=== PATIENT | female | born 1950 | race Caucasian/White ===

== ENCOUNTER 2020-05-14 15:15 | Outpatient (CLI) | payer OTHER, SELFPAY ==
[2020-05-14 16:19] LABS: Alanine Aminotransferase 11 U/L (4-35); Albumin Level 4.1 g/dL (3.5-5.1); Alkaline Phosphatase 51 U/L (38-126); Anion Gap 6 mmol/L (8-16); Aspartate Amino Transferase 22 U/L (14-36); Bilirubin,Total 0.4 mg/dL (0.2-1.3); Blood Urea Nitrogen 15 mg/dL (7-17); Calcium 8.9 mg/dL (8.4-10.2); Carbon Dioxide 30 mmol/L (22-30); Chloride 102 mmol/L (98-107); Estimated Glomerular Filt Rate > 60; Glucose 92 mg/dL (65-105); Sodium 138 mmol/L (137-145)
== END 2020-05-14 15:16 | disposition home or self-care (01) ==
LOC: ANHLAB 15:17
PROVIDERS: PCP Family Medicine; Visit Provider Physician Assistant
DX: E78.2 Mixed hyperlipidemia (principal); M81.0 Age-related osteoporosis without current pathological fracture
CPT/HCPCS: 36415; 80053

== ENCOUNTER 2020-11-28 07:12 | Outpatient (CLI) | payer OTHER, SELFPAY ==
[2020-11-28 07:48] LABS: Basophils Absolute Auto 0.1 K/mm3 (0.0-0.1); Basophils Percent Auto 1.5 % (0.2-1.2); Eosinophils Absolute Auto 0.1 K/mm3 (0-0.3); Eosinophils Percent Auto 2.7 % (0-4.4); Hematocrit 39.5 % (37.0-47.0); Hemoglobin 12.8 g/dL (12.0-15.0); Lymphocytes Absolute Auto 0.96 K/mm3 (0.9-3.2); Lymphocytes Percent Auto 29.2 % (18.3-44.2); Mean Corpuscular HGB Conc 32.4 g/dl (32-36); Mean Corpuscular Hemoglobin 30.3 pg (26-34); Mean Corpuscular Volume 93.4 fl (80-100); Mean Platelet Volume 9.6 fl (7.4-10.4); Monocytes Absolute Auto 0.3 K/mm3 (0.1-0.6); Neutrophils Absolute Auto 1.9 K/mm3 (1.3-6.7); Neutrophils Percent Auto 56.6 % (45.5-73.1); Platelet Count Result 239 k/mm3 (150-375); Red Blood Count 4.23 M/mm3 (4.2-5.4); Red Cell Distribution Width 13.8 % (11.5-14.5); White Blood Count 3.3 K/mm3 (4.5-10.0)
[2020-11-28 08:07] LABS: Alanine Aminotransferase 14 U/L (4-35); Albumin Level 4.3 g/dL (3.5-5.1); Alkaline Phosphatase 47 U/L (38-126); Anion Gap 4 mmol/L (8-16); Aspartate Amino Transferase 24 U/L (14-36); Bilirubin,Total 0.9 mg/dL (0.2-1.3); Blood Urea Nitrogen 12 mg/dL (7-17); Calcium 9.2 mg/dL (8.4-10.2); Carbon Dioxide 29 mmol/L (22-30); Chloride 107 mmol/L (98-107); Cholesterol 206 mg/dL (0-200); Estimated Glomerular Filt Rate > 60; Glucose 93 mg/dL (65-105); HDL Direct 96 mg/dL; Potassium 4.3 mmol/L (3.4-5.0); Sodium 140 mmol/L (137-145); Triglycerides 71 mg/dL (<150)
[2020-11-28 08:18] LABS: LDL Cholesterol Direct 86 mg/dL
[2020-12-02 23:20] LABS: Vitamin D 1,25 (OH)2 Total 66 pg/mL (18-72); Vitamin D2 1,25 (OH)2 <8 pg/mL; Vitamin D3 1,25 (OH)2 66 pg/mL
== END 2020-11-28 07:13 | disposition home or self-care (01) ==
PROVIDERS: PCP Family Medicine; Visit Provider Family Medicine
DX: M81.0 Age-related osteoporosis without current pathological fracture (principal); I10 Essential (primary) hypertension; E78.2 Mixed hyperlipidemia
CPT/HCPCS: 36415; 80053; 80061; 82652; 85025

== ENCOUNTER 2021-02-11 10:20 | Outpatient (CLI) | payer OTHER, SELFPAY ==
--- NOTE | 2021-02-11 11:30 | NEURO_ITS ---
Impression: # Complains of right hand pain and numbness. # Evolving right Carpal Tunnel Syndrome with more involvement of sensory component. # No ulnar neuropathy. # Needle/EMG exam not requested. Nerve Conduction Studies Anti Sensory Summary Table Stim Site NR Peak (ms) P-T Amp (?V) Site1 Site2 Delta-P (ms) Dist (cm) Simeon (m/s) Right Median Anti Sensory (2-3nd Digit) Wrist 3.8 20.2 Wrist 2-3nd Digit 3.8 14.0 37 Wrist 4.0 32.4 Wrist 2-3nd Digit 3.8 14.0 37 Right Radial Anti Sensory (Base 1st Digit) Wrist 2.2 24.3 Wrist Base 1st Digit 2.2 0.0 Right Ulnar Anti Sensory (5th Digit) Wrist 2.6 13.2 Wrist 5th Digit 2.6 14.0 54 Motor Summary Table Stim Site NR Onset (ms) O-P Amp (mV) Site1 Site2 Delta-0 (ms) Dist (cm) Simeon (m/s) Right Median Motor (Abd Poll Brev) Wrist 4.0 1.0 Elbow Wrist 4.5 27.0 60 Elbow 8.5 2.1 Right Ulnar Motor (Abd Dig Minimi) Wrist 3.4 4.6 A Elbow Wrist 4.4 27.0 61 A Elbow 7.8 4.5 F Wave Studies NR F-Lat (ms) L-R F-Lat (ms) Right Median (Mrkrs) (Abd Poll Brev) 27.33 Right Ulnar (Mrkrs) (Abd Dig Min) 27.72 MTDD
== END 2021-02-11 10:21 | disposition home or self-care (01) ==
PROVIDERS: PCP Family Medicine; Visit Provider Plastic Surgery
DX: G56.01 Carpal tunnel syndrome, right upper limb (principal); R22.31 Localized swelling, mass and lump, right upper limb; M79.641 Pain in right hand; R20.0 Anesthesia of skin
CPT/HCPCS: 95909

== ENCOUNTER 2021-03-20 10:34 | Outpatient (CLI) | payer OTHER, SELFPAY ==
[2021-03-20 11:17] LABS: Estimated Glomerular Filt Rate 37
== END 2021-03-20 10:35 | disposition home or self-care (01) ==
LOC: ANHIMG 10:38
PROVIDERS: PCP Family Medicine; Visit Provider Plastic Surgery
DX: R22.31 Localized swelling, mass and lump, right upper limb (principal)
CPT/HCPCS: 99199

== ENCOUNTER 2021-03-30 06:51 | Outpatient (CLI) | payer OTHER, SELFPAY ==
[2021-03-30 07:37] LABS: Potassium 4.1 mmol/L (3.4-5.0)
[2021-03-30 07:44] LABS: Anion Gap 5 mmol/L (8-16); Blood Urea Nitrogen 16 mg/dL (7-17); Calcium 9.2 mg/dL (8.4-10.2); Carbon Dioxide 30 mmol/L (22-30); Chloride 105 mmol/L (98-107); Estimated Glomerular Filt Rate > 60; Glucose 98 mg/dL (65-110); Sodium 140 mmol/L (137-145)
== END 2021-03-30 06:52 | disposition home or self-care (01) ==
PROVIDERS: PCP Family Medicine; Visit Provider Physician Assistant
DX: R79.89 Other specified abnormal findings of blood chemistry (principal)
CPT/HCPCS: 36415; 80048

== ENCOUNTER 2021-05-01 09:26 | Outpatient (CLI) | payer OTHER, SELFPAY ==
--- NOTE | ~2021-05-01 | MR_ITS ---
EXAMINATION: MR hand RT wo/w con DATE: 05/01/2021 10:49 INDICATION: Soft tissue mass at the palm of the right hand. TECHNIQUE: Magnetic resonance imaging (MRI) of the without and with 10 mL Multihance was performed wi thout intravenous contrast. A marker was placed over the mass. Sequences included axial, sagittal an d coronal T1-weighted FSE and T2-weighted FS FSE, axial T1-weighted FS FSE and post contrast axial an d coronal T1-weighted FS FSE were also obtained. COMPARISON: None. FINDINGS: Loculated fluid collection in the tendon sheath surrounding the flexor tendons of the third digit whi ch extends 3 cm proximal to distally at the level of the mid to distal metacarpal which measures up t o 1.3 x 1.3 cm in maximal transaxial dimensions. Thin peripheral rim of enhancing synovium. No soft t issue nodules or enhancing nodular soft tissue component within the tendon sheath. There is a very sm all ganglion cyst along the volar aspect of the flexor tendon at the level of the base of the fifth p roximal phalanx. The flexor and extensor tendons are normal. The collateral ligament complex at the m etacarpophalangeal joints. There is thickening of the radial and ulnar collateral ligament complexes consistent with degeneration without discrete tear at the fifth proximal interphalangeal joint. Severe osteoarthritis with subarticular marrow edema and cystlike changes at the first carpometacarpa l joint. Moderate osteoarthritis at the triscaphe joint. Mild osteoarthritis at the second carpometac arpal, midcarpal, first metacarpophalangeal and interphalangeal and fifth metacarpophalangeal joints, each with additional subarticular dislike changes. This includes at the distal pole of the capitate, along the proximal margin of the hamate, at the head of the first metacarpal and proximal phalanx an d base of the fifth proximal phalanx. Incompletely visualized is additional prominent marrow edema an d cystlike changes at the lunate. Moderate osteoarthritis at the fifth proximal interphalangeal joint with central erosion along the ulnar side of the base of the middle phalanx. Additional osteoarthrit is and central erosions are partially visualized at the fifth proximal interphalangeal joint which is at the margin of the [id number]. No fracture or pathologic marrow replacing process. IMPRESSION: 1. Isolated 3 x 1.3 x 1.3 cm tenosynovial fluid collection surrounding the flexor tendons to the thir d digit at the level of the mid to distal metacarpal. No enhancing nodular soft tissue component. 2. 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 Reviewed, dictated and finalized at location A. K DRIVER RUBBISH COLLECTOR IMPRESSION: 1. Isolated 3 x 1.3 x 1.3 cm tenosynovial fluid collection surrounding the flex or tendons to the third digit at the level of the mid to distal metacarpal. No enhancing nodular soft tissue component. 2. 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
[2021-05-01 10:11] LABS: Estimated Glomerular Filt Rate > 60
== END 2021-05-01 09:27 | disposition home or self-care (01) ==
LOC: ANHIMG 09:34
PROVIDERS: PCP Family Medicine
DX: M19.041 Primary osteoarthritis, right hand (principal)
CPT/HCPCS: 73220; A9577

== ENCOUNTER 2021-06-10 01:02 | Day surgery (SDC) | payer OTHER, SELFPAY ==
[2021-06-02 08:31] VITALS: BMI 21.9
--- NOTE | 2021-06-02 08:45 | PC.NURSE ---
Report to the Outpatient Waiting Room, entrance under the green pavilion located off [facility], at time 11:00AM on date 06/10/21 . OR Time: ___1:00PM . - You and your visitor will be asked a series of questions to screen for COVID 19 for your protection. - A mask is required within the hospital. - Only one visitor is allowed at this time. Patient visitors will be guided where to wait when not with patient. Preoperative COVID Testing Requirements: No COVID Test needed if: (proof is required; if not received patient will have Rapid Test prior to entry) - Patient has received COVID Vaccine at least 14 days prior to procedure date or - Patient has positive COVID test result within last 90 days of surgery date. COVID Test needed if above criteria is not met If not COVID vaccinated a COVID test must be conducted within 72 hours of surgery and patient is asked to isolate self from time of testing until procedure. You will go to the [facility] for your COVID testing. The [facility] site is located at the corner of [address] [facility]. You will only be called if COVID results are positive and your surgeon may reschedule your elective surgery date. Patients may have clear liquids (water, carbonated beverages, clear teas, apple juice) until 3 hours prior to surgery with a maximum of 20 ounces. - No food from midnight until time of surgery - Infants may have breast milk until 4 hours before surgery, infant formula 6 hours prior to surgery. - Children will be allowed to drink immediately following surgery. If applicable, please bring a bottle or sippy cup to assist with drinking. Juice, water, soda, and popsicles are readily available. For infants on formula, please bring formula the day of surgery. Pacifiers are allowed. Take the following medications with a SIP of water the morning of surgery: ____NONE Medications to discontinue per physician VITAMINS/SUPPLEMENTS 3 DAYS PRE-OP Date to take last dose____06/07/21 Please no make-up, nail french, hairspray, perfume, deodorant, or body powder the day of surgery. No jewelry (including any body piercings) or valuables the day of surgery, leave them at home. Please take a shower or bath the night before, or the morning of, surgery with an antibacterial soap. Wear comfortable, loose fitting clothing. Children are encouraged to wear pajamas. - Jewelry must be removed prior to entering the operating room. Rings and piercings that are not removed may be cut off. - The hospital will not accept responsibility for valuables. - Please leave all valuables, including medications, at home the day of surgery. If you are going home after surgery, a licensed local company tanker driver must drive you home. - NO public transportation without another adult. - We recommend that an adult stay with you for 24 hours following discharge. - We also recommend that you do not drive, make important decision, drink alcoholic beverages, or take any drugs that were not prescribed by your health care provider for at least 24 hours after your discharge time. For Pediatric surgeries, we recommend two adults accompany the child home (only one inside the building at this time). Follow any additional instructions given to you from your surgeon. Telephone instructions given to _PATIENT and asked if any additional questions and then verbalized understanding. Patient advised to call surgeon office or pre surgery nurse liaison [phone] if any additional questions.
--- NOTE | 2021-06-10 07:16 | WPDHPUPDATE1 ---
History and Physical Update Update Date/Time: 06/10/21 07:16 History and Physical has been reviewed, including an updated exam of the patient. There are NO changes in the patient's condition. Risks, benefits, and alternatives have been discussed and questions answered. Patient agrees to proceed with procedure.
[2021-06-10 11:10] VITALS: BP 148/75; PULSE 77; RESP 14; TEMP 37.1; O2SAT 100; BMI 20.4
[2021-06-10] MEDS: LACTATED RINGERS 1,000 ML 30 ML IV CONT (11:40)
--- NOTE | 2021-06-10 12:03 | WPDANESEPPF ---
Anes - Initial Pre Proc Eval Procedure: Operation Date: 06/10/21 13:00 Proposed Procedures p Release Right Middle Trigger Finger, - Frank Rizo MD s Excision of Tenosynovial Mass of Right Palm - Frank Rizo MD Date/Time: 06/10/21 12:03 Surgeon: Frank Rizo MD Pre Op Diagnosis: rt middle trigger finger,tenosynovial mass rt palm Patient Data Age: 70 Gender: F Height: 1.63 m Weight: 54.05 kg Last Vital Signs Temp 37.1 C 06/10/21 11:10 Pulse 77 06/10/21 11:10 Resp 14 06/10/21 11:10 BP 148/75 H 06/10/21 11:10 Pulse Ox 100 06/10/21 11:10 Allergies Allergy/AdvReac Type Severity Reaction Status Date / Time Sulfa (Sulfonamide Allergy Unknown Swelling Verified 06/10/21 11:34 Antibiotics) diclofenac [From [facility]] Allergy Itching Verified 06/10/21 11:34 misoprostol [From [facility]] Allergy Itching Verified 06/10/21 11:34 Home Medications Medication Instructions Recorded Confirmed Type alendronate 70 mg tablet 70 mg PO WEEKLY #14 tablet 10/30/20 06/02/21 Rx atorvastatin 10 mg tablet 10 mg PO DAILY #90 tablet 10/30/20 06/02/21 Rx cholecalciferol (vitamin D3) 1,250 50,000 unit PO WEEKLY #14 cap 10/30/20 06/10/21 Rx mcg (50,000 unit) capsule pantoprazole 40 mg tablet,delayed 40 mg PO QAM 28 Days #30 tablet 11/23/20 06/02/21 Rx release acetaminophen [Tylenol Arthritis] 1,300 mg PO Q12H PRN 06/02/21 06/02/21 History lisinopril 10 mg PO QAM 06/02/21 06/02/21 History Patient hx anesthesia problems: none Family hx anesthesia problems: none Results Review: All pre-operative results and documents have been reviewed as part of the pre-operative evaluation. [facility] Past Medical History Medical History Aortic atherosclerosis Glaucoma Hearing loss History of tobacco abuse Mixed hyperlipidemia Osteoporosis RBBB Surgical History Surgical History History of total knee arthroplasty Left, 2017 Family History Family History Father Carcinoma of colon, Onset Age: 77 Mother Family history of coronary artery disease, Onset Age: 62 Diabetes mellitus, Onset Age: 63 Sibling No family history of diabetes mellitus Grandparent Diabetes mellitus Social History Social History Social History: Single Smoking packs per day: 0.75 Smoking cigarettes per day: 15.0 Years smoked: 40 Smoking pack-years: 30.00 Smoking status: Current every day smoker Tobacco type: cigarettes and e-cigarettes/vaping Second hand tobacco smoke exposure: No Smoking end date: 05/14/19 Alcohol intake: current Drinks per week: 2 Substance use: never Substance use type: does not use Living arrangements: with family Additional living arrangements comments: SON Gender identity (if verbalized by the patient): Female Sexual Orientation (if Verbalized by the Patient): Straight or Heterosexual Spiritual care concerns: No Anes - Eval Final PreProcedure Day of Procedure 06/10/21 12:03 Patient weight: thin Heart: regular rate and rhythm Lungs: clear to auscultation Airway: Mallampati scale class II Neurological: alert and oriented Last oral intake: >/= 8 hours ASA classification: III Emergent: no Anesthetic plan: proceed Anesthesia type and monitoring: general GIVS and standard monitoring Results Review: All pre-operative results and documents have been reviewed as part of the pre-operative evaluation. Informed Consent: The patient's anesthetic plan and its attendant risks and benefits were discussed with the patient/family/POA. Questions were solicited and answers provided to the satisfaction of the patient/family/POA.
--- NOTE | 2021-06-10 12:09 | WPDHPUPDATE1 ---
History and Physical Update Update Date/Time: 06/10/21 12:09 History and Physical has been reviewed, including an updated exam of the patient. There are NO changes in the patient's condition. Risks, benefits, and alternatives have been discussed and questions answered. Patient agrees to proceed with procedure. Patient reports increasing pain and stiffness of right ringer finger A-1 paco site. She requests injection of cortisone to that site while she is under sedation. I diagnose stenosing tenosynovitis and agree to inject the site. She is aware that this could delay healing of all or part of the incisions.
[2021-06-10] MEDS: BETAMETHASONE SOD PHOS/ACETATE 30 MG/5 ML VIAL 12 MG IM (13:14)
[2021-06-10] MEDS: LIDO 1%/EPINEPHRINE 1:100,000 50 ML VIAL 15 ML INFILTRATE (13:18)
[2021-06-10] MEDS: BACITRACIN OINTMENT 15 GM TUBE 1 APPLIC TOPICAL (13:21)
[2021-06-10 13:35] VITALS: BP 111/56; PULSE 74; RESP 14; O2SAT 96
[2021-06-10 14:03] VITALS: BP 148/67; PULSE 60; RESP 16
--- NOTE | 2021-06-10 14:10 | W.PM.PROC2 ---
Procedure Note - Detailed Date of Procedure 06/10/21 Pre-op Diagnosis rt middle trigger finger,tenosynovial mass rt palm Post-op Diagnosis other (Right middle trigger finger. Tenosynovial mass of the right mid palm. Stenosing tenosynovitis of the right ring A1 paco) Procedure Performed Release of the right middle A1 paco. Excision of 3 cm mid palmar ganglion cyst. Injection Betamethasone 4.8 mg to the right ring A1 paco Surgeon Frank Rizo MD Anesthesia MAC Description of Procedure The 3rd A1 paco site and the fluctuant mass in the palm were marked as the patient waited in the holding area. At that time she requested an injection for the ring finger A1 paco which was causing swelling pain and occasional clicking. I agreed to that and we amended the consent form. She was informed this might result in some delayed healing. That site was marked as well. She was then taken to the operating room where she was placed supine on the operating table, A time-out was held and confirmed. The incision marking was placed and the region was infiltrated with 1% lidocaine with epinephrine including some applied to the carpal canal. The hand was exsanguinated and the tourniquet inflated to 250 mmHg. A Adonay type incision was made in the palm and the skin flaps elevated. Care was taken to observe and protect neurovascular bundles. A thickened A1 paco was identified with budding ganglion cyst emanating from that. This mass was removed and the entire A1 apco was lysed. Proximally the 3 cm mass was clearly identified. This was a ganglion cyst type structure with a well-developed wall. This was opened and 3 milliliters of yellow clear gel fluid was expressed. The palmar wall of this was excised. The tendon showed signs of inflammation. We observed the A2 paco noting that that remained intact and unharmed. The wound was then closed with a running 5 0 nylon. The betamethasone injection including 4.8 mg of betamethasone was injected at the distal A1 paco of the ring finger. A bulky bandage was applied. The tourniquet was released and the patient was discharged from the operating room in stable condition. She has instructions in wound care and follow-up and a prescription for hydrocodone 5/325 7. Estimated Blood Loss 2 Drains No Packing No Pathology none sent Complications No immediate complications Condition stable Disposition same day
== END 2021-06-10 14:31 | disposition home or self-care (01) ==
PROVIDERS: PCP Family Medicine; Visit Provider Plastic Surgery
PROC: (CPT 26055; principal; 2021-06-10 13:00)
PROC: (CPT 26160; 2021-06-10 13:00)
DX: M65.331 Trigger finger, right middle finger (principal); M65.841 Other synovitis and tenosynovitis, right hand; M67.441 Ganglion, right hand; I70.0 Atherosclerosis of aorta; M81.0 Age-related osteoporosis without current pathological fracture; I45.10 Unspecified right bundle-branch block; F17.210 Nicotine dependence, cigarettes, uncomplicated
CPT/HCPCS: 26160; 20600; A9270; J0702; J2704; J3010; J7120

== ENCOUNTER 2021-09-13 15:00 | Outpatient (RCR) | payer OTHER, SELFPAY ==
--- NOTE | 2021-08-31 15:49 | OTOPEVAL ---
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 She has evident PIP hyperextension with lateral band snapping during active flexion. Today she was instructed in passive ROM HEP to stretch these and associated structures as well as a PIP finger spring splint to restrict PIP hyperextension. Plan to have her follow up 1x/week for 4 weeks to progress HEP as tolerated and to continue use of modalities and manual therapy to improve flexibility and facilitate optimal return of hand function. Thank you for referring Hailey Arnold to [facility].? The patient is scheduled to be seen for therapy? 1x/week for 4 weeks. Please review, sign, date and return this plan of care ARVIND. I agree with and certify that the following plan of care is medically necessary. 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 Respiratory History Hx Respiratory Disorders No Significant History Gastrointestinal History Hx Gastrointestinal Disorders No Significant History Genitourinary History Hx Genitourinary Disorders No Significant History Musculoskeletal History Hx Arthritis Yes: HANDS Hx Joint Replacement Yes: LTKA ~2007, RTKA ~ 2014 Hx Other Musculoskeletal Disorders Yes: RT MIDDLE TRIGGER FINGER, TENOSYNOVIAL MASS RT PALM Hematological History Hx Hematological Disorders No Significant History Endocrine History Hx Endocrine Disorders No Significant History HEENT History Hx Cataracts Yes: BILAT IMPLANTS Hx Tonsillectomy Yes: TEENAGER Integumentary History Hx Skin Disorders No Significant History Psychosocial History Hx Depression Yes: WITH DIVORCE YEARS AGO Pain History History of Any Previous or Ongoing No Significant History Instance of Pain Anesthesia History Hx Anesthesia Reactions No Significant History Other History Hx Implanted Device Yes: BILAT KNEES Evaluation Information Problem Additional Evaluation Detail Dx: mild swan neck deformity with snapping of lateral bands of right middle finger s/p right 3rd A1 paco release and excision of large palmar ganglion cyst (06/10/21). Subjective Information Patient reports difficulties Query Text:As Reported By Patient/ with being able to Family consistently make a fist. She reports and demonstrates that the middle finger PIP joint
--- NOTE | 2021-09-21 15:17 | PCOTNOTE ---
OCCUPATIONAL THERAPY DISCHARGE NOTIFICATION 09/21/21 Patient:Hailey Arnold Date of :1950 Patient has not returned for any further treatments since 09/13/2021, therefore she will be discharged at this time. The patient has concerns about her co-pay and being able to afford future therapy visits. She reports that the treatment is working and is going to continue her home exercise program. Course of treatment included figure 8 splinting to allow no more than 45* extension at the right middle finger's PIP joint to reduce lateral band snapping and catching with active flexion. She has been diligent with her HEP for passive and active ROM as well as strengthening with putty. She has been making promising progress and only having intermittent episodes of the lateral band catching. Overall prognosis looks good as long as she continues to be compliant with her HEP. The goals have been partially met. Thank you for referring this patient to [facility]. Please review, sign, date and return this discharge summary ARVIND. I have been updated about the patient's current status and I agree with discharge from the above service at this time. Referring Physician Date Referring Provider: Frank Rizo MD
== END 2021-09-22 11:13 | disposition home or self-care (01) ==
LOC: ANHOT 15:00
PROVIDERS: PCP Family Medicine; Visit Provider Plastic Surgery
DX: Z48.89 Encounter for other specified surgical aftercare (principal)
CPT/HCPCS: 97018; 97110; 97140; 97165; 97760

== ENCOUNTER 2022-04-27 15:44 | Outpatient (CLI) | payer OTHER, SELFPAY ==
--- NOTE | ~2022-04-27 | MM_ITS ---
EXAMINATION: MM screening marcus BI w deonte HISTORY: Screening TECHNIQUE: Craniocaudal and mediolateral oblique 3-D tomosynthesis images were obtained and synthetic 2-D images were generated. CAD analysis was submitted and interpreted. COMPARISON: No prior mammogram is available for comparison at this institution. BREAST PARENCHYMAL COMPOSITION: There are scattered areas of fibroglandular density. FINDINGS: There is no evidence of suspicious mass, calcification, or architectural distortion to sugg est malignancy in either breast. There has been no suspicious interval change. IMPRESSION: 1. No mammographic evidence of malignancy. 2. Recommend routine screening mammography in one year. BI-RADS Category 1: Negative Reviewed, dictated and finalized at location A. MANAGER SPECIALIST
== END 2022-04-27 15:45 | disposition home or self-care (01) ==
LOC: ANHIMG 15:44
PROVIDERS: PCP Family Medicine; Visit Provider Nurse Practitioner Gerontology
DX: Z12.31 Encounter for screening mammogram for malignant neoplasm of breast (principal)
CPT/HCPCS: 77063; 77067

== ENCOUNTER 2022-11-05 07:18 | Outpatient (CLI) | payer OTHER, SELFPAY ==
[2022-11-05 08:21] LABS: Basophils Absolute Auto 0.1 K/mm3 (0.0-0.1); Basophils Percent Auto 1.6 % (0.2-1.2); Eosinophils Absolute Auto 0.1 K/mm3 (0-0.3); Eosinophils Percent Auto 1.9 % (0-4.4); Hematocrit 37.8 % (37.0-47.0); Hemoglobin 12.2 g/dL (12.0-15.0); Immature Granulocyte Absolute 0.01 K/mm3 (0.00-0.031); Immature Granulocyte Percent A 0.3 % (0-0.5); Lymphocytes Absolute Auto 1.08 K/mm3 (0.9-3.2); Lymphocytes Percent Auto 28.9 % (18.3-44.2); Mean Corpuscular HGB Conc 32.3 g/dl (32-36); Mean Corpuscular Hemoglobin 29.9 pg (26-34); Mean Corpuscular Volume 92.6 fl (80-100); Mean Platelet Volume 9.7 fl (7.4-10.4); Monocytes Absolute Auto 0.5 K/mm3 (0.1-0.6); Monocytes Percent Auto 13.1 % (2.6-8.5); Neutrophils Percent Auto 54.2 % (45.5-73.1); Platelet Count Result 288 k/mm3 (150-375); Red Blood Count 4.08 M/mm3 (4.2-5.4); White Blood Count 3.7 K/mm3 (4.5-10.0)
[2022-11-05 08:44] LABS: Alanine Aminotransferase 13 U/L (6-35); Alkaline Phosphatase 60 U/L (38-126); Anion Gap 3 mmol/L (8-16); Aspartate Amino Transferase 20 U/L (14-36); Bilirubin,Total 0.8 mg/dL (0.2-1.3); Blood Urea Nitrogen 17 mg/dL (7-17); Calcium 8.8 mg/dL (8.4-10.2); Carbon Dioxide 31 mmol/L (22-30); Chloride 104 mmol/L (98-107); Cholesterol 187 mg/dL (0-200); Estimated Glomerular Filt Rate > 60; Glucose 94 mg/dL (65-110); HDL Direct 88 mg/dL; Potassium 4.3 mmol/L (3.4-5.0); Sodium 138 mmol/L (137-145); Triglycerides 59 mg/dL (<150); Uric Acid 5.8 mg/dL (2.5-7.5)
[2022-11-05 08:54] LABS: LDL Cholesterol Direct 82 mg/dL
== END 2022-11-05 07:19 | disposition home or self-care (01) ==
PROVIDERS: PCP Family Medicine; Visit Provider Family Medicine
DX: I10 Essential (primary) hypertension (principal); E78.2 Mixed hyperlipidemia; E79.0 Hyperuricemia without signs of inflammatory arthritis and tophaceous disease; E03.9 Hypothyroidism, unspecified
CPT/HCPCS: 36415; 80053; 80061; 84443; 84550; 85025

== ENCOUNTER 2023-08-12 07:03 | Outpatient (CLI) | payer OTHER, SELFPAY ==
[2023-08-12 08:17] LABS: Basophils Percent Auto 1.1 % (0.2-1.2); Eosinophils Absolute Auto 0.1 K/mm3 (0-0.3); Eosinophils Percent Auto 2.9 % (0-4.4); Hematocrit 39.1 % (37.0-47.0); Hemoglobin 12.5 g/dL (12.0-15.0); Lymphocytes Absolute Auto 0.93 K/mm3 (0.9-3.2); Lymphocytes Percent Auto 33.9 % (18.3-44.2); Mean Corpuscular Hemoglobin 30.2 pg (26-34); Mean Corpuscular Volume 94.4 fl (80-100); Mean Platelet Volume 10.1 fl (7.4-10.4); Monocytes Absolute Auto 0.4 K/mm3 (0.1-0.6); Monocytes Percent Auto 13.9 % (2.6-8.5); Neutrophils Absolute Auto 1.3 K/mm3 (1.3-6.7); Neutrophils Percent Auto 48.2 % (45.5-73.1); Platelet Count Result 260 k/mm3 (150-375); Red Blood Count 4.14 M/mm3 (4.2-5.4); Red Cell Distribution Width 14.1 % (11.5-14.5); White Blood Count 2.7 K/mm3 (4.5-10.0)
[2023-08-12 08:29] LABS: Alanine Aminotransferase 10 U/L (6-35); Albumin Level 4.1 g/dL (3.5-5.1); Alkaline Phosphatase 71 U/L (38-126); Anion Gap 4 mmol/L (8-16); Aspartate Amino Transferase 21 U/L (14-36); Bilirubin,Total 0.7 mg/dL (0.2-1.3); Blood Urea Nitrogen 13 mg/dL (7-17); Calcium 9.2 mg/dL (8.4-10.2); Carbon Dioxide 27 mmol/L (22-30); Chloride 106 mmol/L (98-107); Estimated Glomerular Filt Rate > 60; Glucose 93 mg/dL (65-110); Potassium 4.4 mmol/L (3.4-5.0); Sodium 137 mmol/L (137-145)
[2023-08-12 09:34] LABS: Free T4 Free Thyroxine 1.02 ng/mL (0.78-2.19)
[2023-08-12 09:35] LABS: Folic Acid 11.1 ng/mL (2.76->20)
[2023-08-12 09:36] LABS: Iron 100 ug/dL (37-170)
[2023-08-12 09:47] LABS: Percent Iron Saturation 34 % (20-50)
== END 2023-08-12 07:04 | disposition home or self-care (01) ==
PROVIDERS: PCP Family Medicine
DX: L57.0 Actinic keratosis (principal); L65.9 Nonscarring hair loss, unspecified
CPT/HCPCS: 36415; 80053; 82607; 82746; 83540; 83550; 84439; 84443; 85025

== ENCOUNTER 2023-08-28 09:14 | Outpatient (CLI) | payer OTHER, SELFPAY ==
[2023-08-28 09:42] LABS: Uric Acid 4.8 mg/dL (2.5-7.5)
[2023-08-28 10:26] LABS: Erythrocyte Sedimentation Rate 13 mm/hr (0-20)
[2023-08-30 19:59] LABS: ANA Cascade Screen Negative (Negative)
== END 2023-08-28 09:15 | disposition home or self-care (01) ==
LOC: ANHLAB 09:17
PROVIDERS: PCP Family Medicine; Visit Provider Physician Assistant
DX: M25.571 Pain in right ankle and joints of right foot (principal); M25.572 Pain in left ankle and joints of left foot; M79.641 Pain in right hand; M79.642 Pain in left hand
CPT/HCPCS: 36415; 84550; 85652; 86038; 86225; 86235; 86364

== ENCOUNTER 2023-09-05 14:51 | Outpatient (CLI) | payer OTHER, SELFPAY ==
[2023-09-05 15:08] LABS: Basophils Absolute Auto 0.1 K/mm3 (0.0-0.1); Basophils Percent Auto 1.1 % (0.2-1.2); Eosinophils Percent Auto 0.9 % (0-4.4); Hematocrit 37.3 % (37.0-47.0); Hemoglobin 12.4 g/dL (12.0-15.0); Immature Granulocyte Absolute 0.01 K/mm3 (0.00-0.031); Immature Granulocyte Percent A 0.2 % (0-0.5); Lymphocytes Absolute Auto 1.04 K/mm3 (0.9-3.2); Mean Corpuscular HGB Conc 33.2 g/dl (32-36); Mean Corpuscular Hemoglobin 30.4 pg (26-34); Mean Corpuscular Volume 91.4 fl (80-100); Mean Platelet Volume 9.3 fl (7.4-10.4); Monocytes Absolute Auto 0.4 K/mm3 (0.1-0.6); Monocytes Percent Auto 9.3 % (2.6-8.5); Neutrophils Percent Auto 65.5 % (45.5-73.1); Platelet Count Result 285 k/mm3 (150-375); Red Blood Count 4.08 M/mm3 (4.2-5.4); Red Cell Distribution Width 14.5 % (11.5-14.5); White Blood Count 4.5 K/mm3 (4.5-10.0)
[2023-09-05 17:03] LABS: Iron 64 ug/dL (37-170)
[2023-09-05 17:04] LABS: Alanine Aminotransferase 9 U/L (6-35); Albumin Level 4.4 g/dL (3.5-5.1); Alkaline Phosphatase 73 U/L (38-126); Anion Gap 6 mmol/L (4-12); Aspartate Amino Transferase 20 U/L (14-36); Bilirubin,Total 0.4 mg/dL (0.2-1.3); Blood Urea Nitrogen 20 mg/dL (7-17); Calcium 9.5 mg/dL (8.4-10.2); Carbon Dioxide 26 mmol/L (22-30); Chloride 104 mmol/L (98-107); Estimated Glomerular Filt Rate 54; Glucose 97 mg/dL (65-110); Lactate Dehydrogenase 189 U/L (120-246); Potassium 4.4 mmol/L (3.4-5.0); Sodium 136 mmol/L (137-145)
[2023-09-05 17:16] LABS: Percent Iron Saturation 21 % (20-50)
[2023-09-05 18:10] LABS: Folic Acid 10.1 ng/mL (2.76->20)
[2023-09-07 18:55] LABS: Methylmalonic Acid 217 nmol/L (87-318)
[2023-09-18 14:11] LABS: Soluble Transferrin Receptor 0.73 mg/L (0.76-1.76)
== END 2023-09-05 14:52 | disposition home or self-care (01) ==
PROVIDERS: Nurse Practitioner Family; PCP Family Medicine; Visit Provider Internal Medicine Hematology & Oncology
DX: D50.8 Other iron deficiency anemias (principal)
CPT/HCPCS: 36415; 80053; 82607; 82728; 82746; 83540; 83550; 83615; 83921; 84238; 85025

== ENCOUNTER 2023-09-19 16:30 | Outpatient (CLI) | payer OTHER, SELFPAY ==
--- NOTE | ~2023-09-19 | XR_ITS ---
Bilateral Hands Technique: PA, oblique, and lateral views, and ball-catcher's view were obtained. Clinical History: Osteoarthritis Findings: No acute fracture or dislocation is seen. There is severe erosive osteoarthritis of the left third and fourth DIP joints. There is severe osteo arthritis of the left second PIP joint and DIP joint, as well as the left fifth PIP and DIP joints. T here is moderate degenerative change of the left interphalangeal joint of the thumb and left first CM C joint.. There is severe osteoarthritis of the right second, third, fourth, and fifth DIP joints, as well as t he third, fourth, and fifth PIP joints. There is moderate degenerative change of the right second PIP joint and first CMC joint. Soft tissues are unremarkable. Impression: Polyarticular osteoarthritis and erosive osteoarthritis, predominantly involving the interphalangeal joints and first CMC joints, as detailed above. Reviewed, dictated and finalized at location . Impression: Polyarticular osteoarthritis and erosive osteoarthritis, predominantly involvin g the interphalangeal joints and first CMC joints, as detailed above.
== END 2023-09-19 16:31 | disposition home or self-care (01) ==
LOC: ANHIMG 16:32
PROVIDERS: PCP Family Medicine; Visit Provider Plastic Surgery
DX: M19.041 Primary osteoarthritis, right hand (principal); M19.042 Primary osteoarthritis, left hand
CPT/HCPCS: 73130

== ENCOUNTER 2023-12-19 14:28 | Outpatient (CLI) | payer OTHER, SELFPAY ==
[2023-12-19 15:06] LABS: Basophils Absolute Auto 0.1 K/mm3 (0.0-0.1); Basophils Percent Auto 1.1 % (0.2-1.2); Eosinophils Absolute Auto 0.1 K/mm3 (0-0.3); Hematocrit 37.3 % (37.0-47.0); Hemoglobin 12.3 g/dL (12.0-15.0); Immature Granulocyte Absolute 0.01 K/mm3 (0.00-0.031); Immature Granulocyte Percent A 0.2 % (0-0.5); Lymphocytes Absolute Auto 1.06 K/mm3 (0.9-3.2); Lymphocytes Percent Auto 23.1 % (18.3-44.2); Mean Corpuscular Hemoglobin 30.9 pg (26-34); Mean Corpuscular Volume 93.7 fl (80-100); Mean Platelet Volume 9.5 fl (7.4-10.4); Monocytes Absolute Auto 0.4 K/mm3 (0.1-0.6); Monocytes Percent Auto 9.6 % (2.6-8.5); Neutrophils Absolute Auto 2.9 K/mm3 (1.3-6.7); Platelet Count Result 280 k/mm3 (150-375); Red Blood Count 3.98 M/mm3 (4.2-5.4); Red Cell Distribution Width 13.6 % (11.5-14.5); White Blood Count 4.6 K/mm3 (4.5-10.0)
[2023-12-19 15:16] LABS: Anion Gap 9 mmol/L (4-12); Blood Urea Nitrogen 21 mg/dL (7-17); Calcium 9.2 mg/dL (8.4-10.2); Carbon Dioxide 27 mmol/L (22-30); Chloride 103 mmol/L (98-107); Estimated Glomerular Filt Rate 54; Glucose 92 mg/dL (65-110); Potassium 3.7 mmol/L (3.4-5.0); Sodium 139 mmol/L (137-145)
[2023-12-19 15:57] LABS: Iron 92 ug/dL (37-170)
[2023-12-19 16:07] LABS: Percent Iron Saturation 31 % (20-50)
== END 2023-12-19 14:29 | disposition home or self-care (01) ==
PROVIDERS: PCP Family Medicine; Visit Provider Nurse Practitioner Family
DX: D72.819 Decreased white blood cell count, unspecified (principal); D64.9 Anemia, unspecified
CPT/HCPCS: 36415; 80048; 82607; 82728; 83540; 83550; 85025

== ENCOUNTER 2024-02-14 16:58 | Emergency (ER) | payer OTHER, SELFPAY ==
--- NOTE | 2024-02-14 17:08 | ED.SKABFB ---
HPI - Skin/Abscess/Foreign Bdy General Chief complaint: Skin/Abscess/Foreign Body Stated complaint: poison david Time Seen by Provider: 02/14/24 17:08 Source: patient Mode of arrival: ambulatory Limitations: no limitations History of Present Illness HPI narrative: A 73-year-old female presents with complaint of itchy rash to left side of face, right upper eyelid, left side of neck. Patient concerned that she has poison david. Patient states last time she had poison david it spread rapidly all over her face and into her ear canals. Patient requesting IM steroid. All systems reviewed and negative except as noted above. Related Data Home Medications Medication Instructions Recorded Confirmed acetaminophen 650 mg 1,300 mg PO Q12H Pain 02/14/24 02/14/24 tablet,extended release albuterol sulfate 90 mcg/actuation 1 inh inhalation Q4H shortness of 02/14/24 02/14/24 aerosol inhaler breath or wheezing Allergies Allergy/AdvReac Type Severity Reaction Status Date / Time Sulfa (Sulfonamide Allergy Unknown Swelling Verified 02/14/24 17:11 Antibiotics) diclofenac [From [employer]] Allergy Itching Verified 02/14/24 17:11 misoprostol [From [employer]] Allergy Itching Verified 02/14/24 17:11 Review of Systems Review of Systems: CONSTITUTIONAL: Denies fever, chills, or sweats. EYES: Denies visual changes, redness, or discharge. ENT: Denies rhinorrhea, congestion, sore throat, or otalgia. CARDIOVASCULAR: Denies chest pain, palpitations, or edema. RESPIRATORY: Denies cough or dyspnea. GASTROINTESTINAL: Denies abdominal pain, nausea, vomiting, or diarrhea. GENITOURINARY: Denies dysuria or hematuria. SKIN: Reports rash and itching. MUSCULOSKELETAL: Denies back pain, joint pain, or myalgia. NEUROLOGIC: Denies headache, numbness, or weakness. PSYCHIATRIC: Denies anxiety or depression. All other systems reviewed are negative, except as documented in HPI. [facility] Past Medical History Medical History Acute pain of left shoulder Acute stress reaction Anxiety and depression Aortic atherosclerosis Arthritis Benign paroxysmal positional vertigo of right ear Bronchitis Chronic GERD Decreased hearing of both ears ABHIJEET (generalized anxiety disorder) Glaucoma Hearing loss History of tobacco abuse Hyperlipidemia, unspecified Major depressive disorder, single episode, unspecified Mixed hyperlipidemia Mixed hyperlipidemia Osteoporosis Other hyperlipidemia Polyosteoarthritis, unspecified Postmenopausal RBBB Seasonal allergies Tinnitus of both ears Vertigo Vitamin D deficiency Surgical History Surgical History History of total knee arthroplasty Left, 2017 Family History Family History Father Carcinoma of colon, Onset Age: 77 Mother Family history of coronary artery disease, Onset Age: 62 Diabetes mellitus, Onset Age: 63 Sibling No family history of diabetes mellitus Grandparent Diabetes mellitus Social History Social History (Updated 09/19/23 @ 16:00 by Alicia Carr MA) Social History: Single Smoking packs per day: 0.75 Smoking cigarettes per day: 15.0 Years smoked: 40 Smoking pack-years: 30.00 Smoking status: Former smoker Tobacco type: cigarettes and e-cigarettes/vaping Second hand tobacco smoke exposure: No Smoking end date: 05/14/19 Alcohol intake: current Drinks per week: 2 Substance use: never Substance use type: does not use Do You Feel Safe in your Home?: Yes Lack of Transportation: No Lack of Food: Never True Current Housing: I Have Housing Concerned About Future Housing: No Difficulty Paying Gas/Electric Bills: No Difficulty Paying for Meds: No Currently Unemployed: No Education: High School Diploma/GED Difficulty w/ Childcare or Family Care: No Living arrangemen
[2024-02-14 17:10] VITALS: BP 124/71; PULSE 79; RESP 16; TEMP 36.9; O2SAT 98
[2024-02-14 17:12] VITALS: BP 124/71; PULSE 79; RESP 16; TEMP 36.9; O2SAT 98
[2024-02-14] MEDS: TRIAMCINOLONE ACET INJ 40 MG/ML VIAL IM (17:32)
== END 2024-02-14 17:41 | disposition home or self-care (01) ==
PROVIDERS: Emergency Provider Nurse Practitioner Family; PCP Family Medicine
DX: L23.7 Allergic contact dermatitis due to plants, except food (principal); Z87.891 Personal history of nicotine dependence; I70.0 Atherosclerosis of aorta; K21.9 Gastro-esophageal reflux disease without esophagitis; E78.2 Mixed hyperlipidemia; Z96.652 Presence of left artificial knee joint; H40.9 Unspecified glaucoma
CPT/HCPCS: 96372; 99213; G0463; J3301

== ENCOUNTER 2024-03-22 09:15 | Outpatient (CLI) | payer OTHER, SELFPAY ==
--- NOTE | ~2024-03-22 | US_ITS ---
EXAM: ABDOMEN ULTRASOUND HISTORY: LEUKOPENIA COMPARISON: None FINDINGS: LIVER: The liver is unremarkable in echogenicity and size measuring 15cm in longitudinal dimension. Portal vein is patent demonstrating hepatopedal flow. The portal vein measures 15 mm in caliber, within the limits of normal for size. GALLBLADDER: No stones are identified within the gallbladder. No gallbladder wall thickening or pericholecystic fluid. BILE DUCTS: Common bile duct measures 1.7mm. PANCREAS: Limited evaluation of the pancreas secondary to overlying bowel gas SPLEEN: The spleen is unremarkable in echogenicity and size measuring 8cm in longitudinal dimension. RIGHT KIDNEY: 9.4 cm. In length. No hydronephrosis or bulky renal calculi. LEFT KIDNEY: 9.7cm in length. No hydronephrosis or renal calculi. VASCULATURE : The abdominal aorta is nonaneurysmal. The IVC is patent. IMPRESSION: Unremarkable sonographic evaluation of the abdomen, as detailed above. Evaluation of the pancreas is limited by overlying bowel gas. Reviewed, dictated and finalized at location A.
== END 2024-03-22 09:16 | disposition home or self-care (01) ==
PROVIDERS: PCP Family Medicine; Visit Provider Nurse Practitioner Family
DX: D72.819 Decreased white blood cell count, unspecified (principal); E53.8 Deficiency of other specified B group vitamins
CPT/HCPCS: 76700

== ENCOUNTER 2024-03-28 14:44 | Outpatient (CLI) | payer OTHER, SELFPAY ==
[2024-03-28 15:02] LABS: Basophils Percent Auto 0.6 % (0.2-1.2); Eosinophils Absolute Auto 0.1 K/mm3 (0-0.3); Eosinophils Percent Auto 1.4 % (0-4.4); Hematocrit 35.9 % (37.0-47.0); Hemoglobin 11.8 g/dL (12.0-15.0); Immature Granulocyte Absolute 0.01 K/mm3 (0.00-0.031); Immature Granulocyte Percent A 0.2 % (0-0.5); Lymphocytes Absolute Auto 1.13 K/mm3 (0.9-3.2); Lymphocytes Percent Auto 23.2 % (18.3-44.2); Mean Corpuscular HGB Conc 32.9 g/dl (32-36); Mean Corpuscular Hemoglobin 30.1 pg (26-34); Mean Corpuscular Volume 91.6 fl (80-100); Mean Platelet Volume 9.1 fl (7.4-10.4); Monocytes Absolute Auto 0.5 K/mm3 (0.1-0.6); Monocytes Percent Auto 11.1 % (2.6-8.5); Neutrophils Absolute Auto 3.1 K/mm3 (1.3-6.7); Neutrophils Percent Auto 63.5 % (45.5-73.1); Platelet Count Result 271 k/mm3 (150-375); Red Blood Count 3.92 M/mm3 (4.2-5.4); Red Cell Distribution Width 14.5 % (11.5-14.5); White Blood Count 4.9 K/mm3 (4.5-10.0)
[2024-03-28 16:28] LABS: Iron 54 ug/dL (37-170)
[2024-03-28 16:39] LABS: Percent Iron Saturation 18 % (20-50)
[2024-03-28 19:03] LABS: Alanine Aminotransferase 10 U/L (6-35); Albumin Level 4.3 g/dL (3.5-5.1); Alkaline Phosphatase 59 U/L (38-126); Anion Gap 10 mmol/L (4-12); Aspartate Amino Transferase 18 U/L (14-36); Bilirubin,Total 0.3 mg/dL (0.2-1.3); Blood Urea Nitrogen 26 mg/dL (7-17); Calcium 9.6 mg/dL (8.4-10.2); Carbon Dioxide 26 mmol/L (22-30); Chloride 101 mmol/L (98-107); Estimated Glomerular Filt Rate 40; Glucose 94 mg/dL (65-110); Potassium 4.3 mmol/L (3.4-5.0); Sodium 137 mmol/L (137-145)
[2024-03-28 19:33] LABS: Folic Acid 12.7 ng/mL (2.76->20)
== END 2024-03-28 14:45 | disposition home or self-care (01) ==
LOC: ANHLAB 14:45
PROVIDERS: Nurse Practitioner Family; PCP Family Medicine; Visit Provider Internal Medicine Hematology & Oncology
DX: D72.819 Decreased white blood cell count, unspecified (principal); E53.8 Deficiency of other specified B group vitamins; D50.8 Other iron deficiency anemias
CPT/HCPCS: 36415; 80053; 82607; 82728; 82746; 83540; 83550; 85025

== ENCOUNTER 2024-04-15 12:07 | Emergency (ER) | payer OTHER, SELFPAY ==
--- NOTE | ~2024-04-15 | XR_ITS ---
EXAMINATION: XR hand RT min 3V DATE: 04/15/2024 12:29 INDICATION: Right hand pain. Fall. TECHNIQUE: 3 views of right hand were obtained. COMPARISON: Radiographs 09/19/2023 FINDINGS: There is ulnar subluxation of third and fourth middle phalanges with respect to the proxima l phalanges. There is an oblique extra articular fracture of base of fifth metacarpal. The distal fra cture fragment demonstrates 2 mm dorsal ulnar displacement and shortening. There is a nonaggressive l ytic lesion of lunate, likely an intraosseous ganglion or enchondroma. There is severe osteoarthritis of triscaphe joint, first carpometacarpal joint, and all of the interphalangeal joints. There is mil d osteoarthritis of first metacarpophalangeal joint. IMPRESSION: 1. Oblique fracture of base of fifth metacarpal. 2. Polyarticular osteoarthritis. Reviewed, dictated and finalized at location A. L PRECISION MACHINE ASSEMBLER
[2024-04-15 12:18] VITALS: BP 129/70; PULSE 90; RESP 18; TEMP 36.4; O2SAT 100
--- NOTE | 2024-04-15 12:18 | ED_ITS ---
HPI - General Adult General Chief complaint: Extremity Problem,Nontraumatic Stated complaint: hand swelling Time Seen by Provider: 04/15/24 12:18 Source: patient Mode of arrival: ambulatory Limitations: no limitations History of Present Illness HPI narrative: 73 yo F presents with pain and swelling to R hand. Missed a step yesterday and tripped. Put R hand out to catch her fall. Hit R cheek against concrete. No LOC. Was able to get up on her own. R hand pain worse today. Concerned for fracture. ROM decreased due to pain, distal NV intact. pt ambulatory with steady gait. all systems reviewed and negative except as noted above. Related Data Home Medications Medication Instructions Recorded Confirmed albuterol sulfate 90 mcg/actuation 1 inh inhalation Q4H shortness of 02/14/24 04/15/24 aerosol inhaler breath or wheezing Allergies Allergy/AdvReac Type Severity Reaction Status Date / Time Sulfa (Sulfonamide Allergy Unknown Swelling Verified 04/15/24 12:19 Antibiotics) diclofenac [From [employer]] Allergy Itching Verified 04/15/24 12:19 misoprostol [From [employer]] Allergy Itching Verified 04/15/24 12:19 Review of Systems Review of Systems: CONSTITUTIONAL: Denies fever, chills, or sweats. EYES: Denies visual changes, redness, or discharge. ENT: Denies rhinorrhea, congestion, sore throat, or otalgia. CARDIOVASCULAR: Denies chest pain, palpitations, or edema. RESPIRATORY: Denies cough or dyspnea. GASTROINTESTINAL: Denies abdominal pain, nausea, vomiting, or diarrhea. GENITOURINARY: Denies dysuria or hematuria. SKIN: Denies rash or itching. reports abrasion to right cheek. MUSCULOSKELETAL: Reports right hand pain and swelling NEUROLOGIC: Denies headache, numbness, or weakness. PSYCHIATRIC: Denies anxiety or depression. All other systems reviewed are negative, except as documented in HPI. [facility] Past Medical History Medical History Acute pain of left shoulder Acute stress reaction Anxiety and depression Aortic atherosclerosis Arthritis Benign paroxysmal positional vertigo of right ear Bronchitis Chronic GERD Decreased hearing of both ears ABHIJEET (generalized anxiety disorder) Glaucoma Hearing loss History of tobacco abuse Hyperlipidemia, unspecified Major depressive disorder, single episode, unspecified Mixed hyperlipidemia Mixed hyperlipidemia Osteoporosis Other hyperlipidemia Polyosteoarthritis, unspecified Postmenopausal RBBB Seasonal allergies Tinnitus of both ears Vertigo Vitamin D deficiency Surgical History Surgical History History of total knee arthroplasty Left, 2017 Family History Family History Father Carcinoma of colon, Onset Age: 77 Mother Family history of coronary artery disease, Onset Age: 62 Diabetes mellitus, Onset Age: 63 Sibling No family history of diabetes mellitus Grandparent Diabetes mellitus Social History Social History (Updated 09/19/23 @ 16:00 by Alicia Carr MA) Social History: Single Smoking packs per day: 0.75 Smoking cigarettes per day: 15.0 Years smoked: 40 Smoking pack-years: 30.00 Smoking status: Former smoker Tobacco type: cigarettes and e-cigarettes/vaping Second hand tobacco smoke exposure: No Smoking end date: 05/14/19 Alcohol intake: current Drinks per week: 2 Substance use: never Substance use type: does not use Do You Feel Safe in your Home?: Yes Lack of Transportation: No Lack of Food: Never True Current Housing: I Have Housing Concerned About Future Housing: No Difficulty Paying Gas/Electric Bills: No Difficulty Paying for Meds: No Currently Unemployed: No Education: High School Diploma/GED Difficulty w/ Childcare or Family Care: No Living arrangements: with family Additional living arrangements comments: SON Occupation/Education: occupation 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 There is no relevant family history pertinent to the presenting complaint. Exam Narrative: GENERAL: This is a well-nourished, well-developed patient, in no apparent distress. HEAD: normocephalic, atraumatic. EYES: PERRL. Sclera clear/white. Vision is grossly intact. EARS: External ears normal NOSE: External nose normal NECK: Neck supple, non-tender without lymphadenopathy, masses or thyromegaly. CARDIOVASCULAR: Regular rate and rhythm without murmurs, gallops, or rubs. RESPIRATORY: Clear to auscultation. Breath sounds equal bilaterally. No wheezes, rales, or rhonchi. SKIN: warm, Dry, intact with no suspicious lesions or rash, good texture and turgor. NEURO: awake, alert, and oriented to person, place and time. There were no obvious focal neurologic abnormalities. EXTREMITIES: tenderness and swelling to R 4th and 5th metacarpal on palpation with no deformity. distal NV Intact. ROM normal. Course Course Level of Care: Express Care Visit Vital Signs Vital signs: Vital Signs Temperature 36.4 C 04/15/24 12:18 Pulse Rate 90 04/15/24 12:18 Respiratory Rate 18 04/15/24 12:18 Blood Pressure 129/70 04/15/24 12:18 Pulse Oximetry 100 04/15/24 12:18 Oxygen Delivery Room Air 04/15/24 12:18 Temperature 36.4 C 04/15/24 12:20 Pulse Rate 90 04/15/24 12:20 Respiratory Rate 18 04/15/24 12:20 Blood Pressure 129/70 04/15/24 12:20 Pulse Oximetry 100 04/15/24 12:20 Oxygen Delivery Room Air 04/15/24 12:20 Reviewed Medical Decision Making MDM Narrative Medical decision making narrative: discussed xray results with pt. placed in short arm OCL splint by stephy Carringtonay mechanical system technician. distal NV intact pre and post procedure. referred to Dr. Sloan for follow up care. Has seen him in the past for steroid injections. Vital Signs Vital Signs: Vital Signs Temperature 36.4 C 04/15/24 12:18 Pulse Rate 90 04/15/24 12:18 Respiratory Rate 18 04/15/24 12:18 Blood Pressure 129/70 04/15/24 12:18 Pulse Oximetry 100 04/15/24 12:18 Oxygen Delivery Room Air 04/15/24 12:18 Temperature 36.4 C 04/15/24 12:20 Pulse Rate 90 04/15/24 12:20 Respiratory Rate 18 04/15/24 12:20 Blood Pressure 129/70 04/15/24 12:20 Pulse Oximetry 100 04/15/24 12:20 Oxygen Delivery Room Air 04/15/24 12:20 Imaging Data My impression: Agree with radiologist Radiologist's impression: EXAMINATION: XR hand RT min 3V DATE: 04/15/2024 12:29 INDICATION: Right hand pain. Fall. TECHNIQUE: 3 views of right hand were obtained. COMPARISON: Radiographs 09/19/2023 FINDINGS: There is ulnar subluxation of third and fourth middle phalanges with respect to the proximal phalanges. There is an oblique extra articular fracture of base of fifth metacarpal. The distal fracture fragment demonstrates 2 mm dorsal ulnar displacement and shortening. There is a nonaggressive lytic lesion of lunate, likely an intraosseous ganglion or enchondroma. There is severe osteoarthritis of triscaphe joint, first carpometacarpal joint, and all of the interphalangeal joints. There is mild osteoarthritis of first metacarpophalangeal joint. IMPRESSION: 1. Oblique fracture of base of fifth metacarpal. 2. Polyarticular osteoarthritis. Discharge Plan Discharge Clinical Impression: Closed fracture of fifth metacarpal bone Qualifiers: Encounter type: initial encounter Metacarpal location: base Laterality: right Patient Disposition: Home, Self-Care Condition: Stable Instructions: Hand Fracture (DC) Additional Instructions: The x-ray of your right hand shows a fracture. Do not remove OCL splint. Take pain medication as prescribed. Do not drive while taking this medication. Elevate when at rest. Call today to schedule your follow up appointment. Prescriptions: New tramadol 50 mg tablet 50 mg PO Q6H PRN (Reason: pain) Qty: 12 0RF No Action albuterol sulfate 90 mcg/actuation HFA aerosol inhaler 1 inh inhalation Q4H triamcinolone acetonide 0.1 % cream 1 applic topical BID Qty: 30 0RF cholecalciferol (vitamin D3) 1,250 mcg (50,000 unit) capsule 50,000 unit PO WEEKLY Qty: 14 3RF Rx Instructions: TAKES ON MONDAYS atorvastatin 10 mg tablet See Rx Instructions .ROUTE .COMPLEX Qty: 90 1RF Dose Instruction: Take 1 tablet by mouth once daily Rx Instructions: Take 1 tablet by mouth once daily alendronate 70 mg tablet See Rx Instructions .ROUTE .COMPLEX Qty: 14 0RF Dose Instruction: Take 1 tablet by mouth once a week Rx Instructions: Take 1 tablet by mouth once a week fluticasone propionate 50 mcg/actuation spray,suspension 1 spray intranasal DAILY Qty: 16 0RF Rx Instructions: administer into each nostril omeprazole 40 mg capsule,delayed release(DR/EC) See Rx Instructions .ROUTE .COMPLEX Qty: 100 1RF Dose Instruction: Take 1 capsule by mouth once daily Rx Instructions: Take 1 capsule by mouth once daily lisinopril 10 mg tablet See Rx Instructions .ROUTE .COMPLEX Qty: 100 1RF Dose Instruction: TAKE 1 TABLET BY MOUTH ONCE DAILY IN THE MORNING Rx Instructions: TAKE 1 TABLET BY MOUTH ONCE DAILY IN THE MORNING hydrocortisone 2.5 % cream 1 applic topical BID PRN (Reason: rash) Qty: 28 0RF Rx Instructions: Apply to areas of rash on face as needed, up to two times a day prednisone 10 mg tablet 10 mg PO DAILY Qty: 30 0RF Rx Instructions: Take PO 4 tabs daily x3 days, 3 tabs daily x3 days, 2 tabs daily x3 days, 1 tab daily x3 days Follow-up/Referrals: Akshat Sloan MD [Physician] - 3 Days (schedule follow up appointment for fracture care) Flower Blandon MD [Primary Care Provider] - Stand Alone Forms: Work/School Release IP Time of Disposition: 12:48
[2024-04-15 12:20] VITALS: BP 129/70; PULSE 90; RESP 18; TEMP 36.4; O2SAT 100
== END 2024-04-15 13:02 | disposition home or self-care (01) ==
PROVIDERS: Emergency Provider Nurse Practitioner Family; PCP Family Medicine
DX: S62.316A Displaced fracture of base of fifth metacarpal bone, right hand, initial encounter for closed fracture (principal); W01.0XXA Fall on same level from slipping, tripping and stumbling without subsequent striking against object, initial encounter; I70.0 Atherosclerosis of aorta; K21.9 Gastro-esophageal reflux disease without esophagitis; E78.2 Mixed hyperlipidemia; M81.0 Age-related osteoporosis without current pathological fracture; M19.90 Unspecified osteoarthritis, unspecified site; H40.9 Unspecified glaucoma; Z96.652 Presence of left artificial knee joint; Z87.891 Personal history of nicotine dependence
CPT/HCPCS: 29125; 73130; 99214; G0463

== ENCOUNTER 2024-05-17 10:02 | Outpatient (CLI) | payer OTHER, SELFPAY ==
--- NOTE | ~2024-05-17 | XR_ITS ---
Right Hand Technique: PA, oblique, and lateral views were obtained. Clinical History: Fracture follow-up COMPARISON: [id number] Findings: Cast overlying the ulnar aspect of the hand obscures fine bony detail. There is healing tra nsverse fracture of the proximal fifth metacarpal shaft. Severe degenerative changes throughout the i nterphalangeal joints of the fingers are again present. There is also severe degenerative change the first CMC joint and triscaphe joint. Impression: Healing fracture of the proximal fifth metacarpal shaft. Severe degenerative changes throughout the interphalangeal joints, and at the first CMC joint and tri scaphe joint. Reviewed, dictated and finalized at location M. ER BOSS Impression: Healing fracture of the proximal fifth metacarpal shaft. Severe degenerative changes throughout the interphalangeal joints, and at the f irst CMC joint and triscaphe joint.
== END 2024-05-17 10:03 | disposition home or self-care (01) ==
PROVIDERS: PCP Family Medicine; Visit Provider Plastic Surgery
DX: S62.91XD Unspecified fracture of right hand, subsequent encounter for fracture with routine healing (principal); X58.XXXD Exposure to other specified factors, subsequent encounter; M19.041 Primary osteoarthritis, right hand
CPT/HCPCS: 73130

== ENCOUNTER 2024-06-10 15:15 | Outpatient (CLI) | payer OTHER, SELFPAY ==
--- NOTE | ~2024-06-10 | XR_ITS ---
XR hand RT 2V Ordering provider: Mandy Fernandes PA-C History: . R 5th MC fx, 10 wk f/u . Comparison: May 17, 2024 FINDINGS: BONES: Healing Fracture in the proximal metaphysis of the fifth metacarpal bone. JOINT SPACES: Narrowing of the proximal and distal interphalangeal joints. Minimal subluxation is see n medially in the proximal interphalangeal joints of the fifth, fourth and fifth fingers. Osteoarthri tic changes of the first carpometacarpal joint and metacarpophalangeal joint osteoarthritic changes b etween the scaphoid and the trapezium. SOFT TISSUES: Normal. IMPRESSION: Healing fracture in the proximal metaphysis of the fifth metacarpal bone. Polyarticular osteoarthritic changes. Reviewed, dictated and finalized at location A. SHOVEL OPERATOR
== END 2024-06-10 15:16 | disposition home or self-care (01) ==
PROVIDERS: PCP Family Medicine; Visit Provider Physician Assistant Surgical
DX: S62.326D Displaced fracture of shaft of fifth metacarpal bone, right hand, subsequent encounter for fracture with routine healing (principal); X58.XXXD Exposure to other specified factors, subsequent encounter
CPT/HCPCS: 73120

== ENCOUNTER 2024-07-30 15:27 | Outpatient (CLI) | payer OTHER, SELFPAY ==
--- NOTE | ~2024-07-30 | XR_ITS ---
EXAM: XR hand BI arthritis min 3V DATE: 07/30/2024 15:49 HISTORY: M19.90 - Unspecified osteoarthritis, unspecified site . COMPARISON: 06/10/2024. FINDINGS: Normal mineralization. No fracture or dislocation. No lytic or blastic lesion. Scattered m oderate and severe arthritic changes typical of erosive osteoarthritis, most pronounced in the interp halangeal joints, first CMC joints, and triscaphe joints. Multiple mild lateral subluxations in the f ingers. No periosteal change. Soft tissue swelling over multiple DIP and PIP joints. IMPRESSION: Severe erosive osteoarthritis of the hands. Reviewed, dictated and finalized at location K. [employer]ERCISE SCIENCE
--- OUTSIDE RECORDS SUMMARY | 2024-07-30 15:33 | XMS_ITS | Clinical Summary ---
Author Organization [facility] Address [address] [place] [id number] Care Team Providers Care Hands Assembler Name Role Phone Mauro Norwood MD Primary Care Provider [phone] Allergies Active Allergy Reactions Criticality Noted Date Comments Sulfa Antibiotics Throat swelling High 06/30/2017 Medications dexlansoprazole (DEXILANT) 60 MG capsule Take 60 mg by mouth daily. Active Active Problems No known active problems Family History Medical History Relation Comments Diabetes Brother Diabetes Father Diabetes Mother Diabetes Sister Relation Status Comments Brother Father Mother Sister Social History Tobacco Use Types Packs/Day Years Used Date Smoking Tobacco: Former Smokeless Tobacco: Never Comments:quit 5 years ago Alcohol Use Standard Drinks/Week Comments Yes 0 (1 standard drink = 0.6 oz pur e alcohol) occasional Comments No Sex and Gender Information Value Date Recorded Sex Assigned at Not on file Legal Sex Female 7:25 PM CDT Gender Identity Not on file Sexual Orientation Not on file Last Filed Vital Signs Vital Sign Reading Time Taken Comments Blood Pressure 132/72 06/30/2017 2:37 PM COLOR FINISHER Pulse 84 06/30/2017 2:37 PM COLOR FINISHER Temperature 36.7 C (98 F) 06/30/2017 2:37 PM COLOR FINISHER Respiratory Rate 18 06/30/2017 2:37 PM COLOR FINISHER Oxygen Saturation 98% 06/30/2017 2:37 PM COLOR FINISHER Inhaled Oxygen Concentration - - Weight 61.2 kg (135 lb) 06/30/2017 2:37 PM COLOR FINISHER Height 162.6 cm (5' 4 ) 06/30/2017 2:37 PM COLOR FINISHER Body Mass Index 23.17 06/30/2017 2:37 PM COLOR FINISHER Plan of Treatment Health Maintenance Due Date Last Done Comments Colorectal Cancer Screening Colonoscopy (10 Years) 1950 Hepatitis C 1968 DTaP, Tdap and Td Vaccines ( 1 - Tdap) 1969 Mammogram Screening 1990 Zoster Vaccines (1 of 2) 2000 Dexa Scan (General) 08/28/2015 Pneumococcal Vaccine: 65+ Ye ars (1 of 1 - PCV) 08/28/2015 COVID-19 Vaccine ( - 2023-2 5 season) 2024 Influenza Adult (#1) 2024 RSV Immunization or 60+ Years (1 - 1-dose 75+ series) 2025 Meningococcal B Vaccine Aged Out No l onger eligible based on patient's age to complete this topic Meningococcal Vaccine Aged Out No he sawyer eligible based on patient's age to complete this topic RSV Immunizations Under 20 Months Aged Out No longer eligible based on patient's age to complete this topic Insurance Care Teams Hands Assembler Relationship Specialty Start Date End Date Mauro Norwood MD PCP - General INTERNAL MEDICINE 06/30/17
--- OUTSIDE RECORDS SUMMARY | 2024-07-30 15:33 | XMS_ITS | Clinical Summary ---
Author Organization [facility] Address [address] [place] [address] Care Team Providers Care Location Analyst Name Role Phone Flower Blandon MD Primary Care Provider [phone] Allergies Active Allergy Reactions Criticality Noted Date Comments Sulfa (Sulfonamide Antibiotics) Unknown High 06/12 Medications cholecalciferol 1,250 mcg (50,000 unit) Capsule TAKE 1 CAPSULE BY MOUTH ONCE A WEEK ON Mondays08/25/2023 Active atorvastatin (LIPITOR) 10 mg tablet Take 10 mg by mouth daily. Active alendronate (FOSAMAX) 70 mg tablet Take 70 mg by mouth every 7 days. empty stomach before other meds,with 8oz of water, stay upright 30 min Active lisinopriL (PRINIVIL) 10 mg tablet Take 15 mg by mouth daily. Active cyanocobalamin 1,000 mcg Tablet Take 1,000 mcg by mouth daily. Active Active Problems No known active problems Encounters Date Type Department Care Team Description 07/09/2024 External Device Data [facility] ABSTRACTION Provider, Abstract 07/03/2024 External Device Data [facility] ABSTRACTION Provider, Abstract 07/03/2024 External Device Data [facility] ABSTRACTION Provider, Abstract 06/26/2024 External Device Data [facility] ABSTRACTION Provider, Abstract from Last 3 Months Family History Medical History Relation Name Comments Diabetes Brother 1 No Known Problems Brother 2 No Known Problems Brother 3 No Known Problems Brother 4 No Known Problems Brother 5 No Known Problems Brother 6 No Known Problems Brother 7 No Known Problems Child Colon Cancer Father Diabetes Father Diabetes Mother Diabetes Sister Relation Name Status Comments Brother 1 Alive Brother 2 Alive Brother 3 Alive Brother 4 Alive Brother 5 Alive Brother 6 Alive Brother 7 Child Alive Father Mother Sister Alive Social History Tobacco Use Types Packs/Day Years Used Date Smoking Tobacco: Former Cigarettes 1 15 Q uit: 09/04/2014 Smokeless Tobacco: Never Tobacco Cessation:Counseling Given: Not Answered Alcohol Use Standard Drinks/Week Comments Yes 0 (1 standard drink = 0.6 oz pur e alcohol) Socially Comments Unknown Sex and Gender Information Value Date Recorded Sex Assigned at Not on file Legal Sex Female 9:45 AM CDT Gender Identity Not on file Sexual Orientation Not on file Last Filed Vital Signs Vital Sign Reading Time Taken Comments Blood Pressure 144/92 03/29/2024 11:41 AM CDT Pulse 94 03/29/2024 11:37 AM CDT Temperature 36.8 C (98.2 F) 03/29/2024 11:37 AM CDT Respiratory Rate 15 03/29/2024 11:37 AM CDT Oxygen Saturation 95% 03/29/2024 11:37 AM CDT Inhaled Oxygen Concentration - - Weight 57.4 kg (126 lb 9.6 oz) 03/29/2024 11:37 AM CDT Height 162.6 cm (5' 4 ) 09/05/2023 2:13 PM CDT Body Mass Index 21.73 09/05/2023 2:13 PM CDT Plan of Treatment Upcoming Encounters Date Type Department Care Team (Late st Contact Info) Description 09/30/2024 2:30 PM CDT Office Visit [facility] Oncology and Hematology - [place] [address] [place] [address] Mauro Gama MD [address] [place] [address] Health Maintenance Due Date Last Done Comments DTAP/TDAP/TD VACCINES (1 - Tdap) 1969 BREAST CANCER SCREENING 1990 COLORECTAL SCREENING 08/28/1995 Colorectal Cancer Screening 08/28/1995 FIT-DNA Q 3 years 08/28/1995 FIT/FOBT Q 1 year 08/28/1995 Flex Sig/CT Colonography Q 5 years 08/28/1995 PNEUMOCOCCAL VACCINE 65+ YEARS (1 of 1 - PCV) 08/28/19 01 ZOSTER VACCINE (1 of 2) 2000 OSTEOPOROSIS SCREENING 08/28/2015 INFLUENZA VACCINE (#1) 2024 [place] Prev entative Visit/Annual Wellness Visit 06/12/2024 RSV VACCINE (60+ or ) (1 - 1-dose 75+ series) 2025 Insurance [facility] M[facility] Care Teams Location Analyst Relationship Specialty Start Date End Date Flower Blandon MD [address] [facility] [address] [place] [address] PCP - General Family Practice 09/05/23
--- OUTSIDE RECORDS SUMMARY | 2024-07-30 15:33 | XMS_ITS | Encounter Summary ---
Author Organization [facility] Address [address] [place] [address] Care Team Providers Care Event Specialist Name Role Phone Mauro Norwood MD Primary Care Provider [phone] Encounter Details Date Type Department Care Team (Late st Contact Info) Description 10/31/2007 Abstract [facility] Conversion Md, Generic Conversion, Social History Tobacco Use Types Packs/Day Years Used Date Smoking Tobacco: Never Assessed Comments Unknown Sex and Gender Information Value Date Recorded Sex Assigned at Not on file Legal Sex Female 7:25 PM CDT Gender Identity Not on file Sexual Orientation Not on file documented as of this encounter Plan of Treatment Not on file documented as of this encounter Visit Diagnoses Not on filedocumented in this encounter Care Teams Event Specialist Relationship Specialty Start Date End Date Mauro Norwood MD PCP - General INTERNAL MEDICINE 06/30/17 documented as of this encounter
== END 2024-07-30 15:28 | disposition home or self-care (01) ==
PROVIDERS: PCP Family Medicine; Visit Provider Physician Assistant Surgical
DX: M19.042 Primary osteoarthritis, left hand (principal); M19.041 Primary osteoarthritis, right hand
CPT/HCPCS: 73130

== ENCOUNTER 2024-10-15 14:41 | Outpatient (CLI) | payer OTHER, SELFPAY ==
--- NOTE | ~2024-10-15 | DEXA_ITS ---
Bone Density Report Name: VICKIE VARELA Age: 74 Sex: Female Ethnicity: White Date of : 1950 Indication: postmenopausal; screening for osteoporosis; prior fracture; hysterectomy; Referring Provider: ELIZABETH FRANCO Study: Bone densitometry was performed. Exam Date: October 15, 2024 Accession number: [id number] Bone Density: Region BMD T-score Z-score Classification AP Spine(L1-L4) 0.779 -2.4 -0.1 Osteopenia Femoral Neck (Left) 0.602 -2.2 -0.2 Osteopenia Total Hip (Left) 0.694 -2.0 -0.3 Osteopenia Femoral Neck (Right) 0.579 -2.4 -0.4 Osteopenia Total Hip (Right) 0.618 -2.7 -0.9 Osteoporosis Total Hip Mean 0.656 -2.4 -0.6 Osteopenia World Health Organization criteria for BMD impression classify patients as: Normal (T-score at or above -1.0), Osteopenia (T-score between -1.0 and -2.5), or Osteoporosis (T-score at or below -2.5). 10-year Fracture Risk: FRAX not reported because: Some T-score for Spine Total or Hip Total or Femoral Neck at or below -2.5 Clinical Information Provided by Patient: Has had a low trauma fracture Has used the following medications: Vitamin D Has the following medical conditions: Hysterectomy Patient maximum height was 64 Menopause Age: 32 No regular weight bearing exercise Does not regularly consume dairy products Drinks caffeinated beverages Onset of menses at age 12 Number of children 4 Impression: The patient has established osteoporosis, based on the Right Total Hip T-score and the existence of a prior fracture. The patient has risk factors, including: previous fracture. Discussion: HIGH RISK OF FRACTURE. BONE DENSITY IS UNDESIRABLY LOW AT ONE OR MORE SKELETAL SITES, CONSISTENT WITH POSTMENOPAUSAL OSTEOPOROSIS. This patient's lowest T-score, in a patient who has previously fractured, meets the World Health Organization's (WHO) criteria for severe osteoporosis. In untreated patients, the risk of osteoporotic fracture increases approximately two-fold for each 1.0 SD decrease in T-score. Low bone density is not the only risk factor for fracture; also consider factors such as patient's age, frailty or poor health, risk of falling, risk of injury, previous osteoporotic fracture, family history of osteoporosis, cigarette smoking, low body weight, etc. Not everyone with low bone mineral density has osteoporosis; osteomalacia and other metabolic bone disorders should also be considered. Patients who have osteoporosis should be evaluated for specific diseases and conditions (secondary causes) that may cause or contribute to bone loss. The [place] Association of Clinical Endocrinologists (AACE) and National Osteoporosis Foundation (NOF) recommend pharmacologic intervention for all postmenopausal women whose T-score is in this range. The patient should follow a healthful lifestyle (good nutrition with adequate calcium and vitamin D, and appropriate weight-bearing exercise). Follow-Up: Consider a repeat BMD and Vertebral Fracture Assessment (VFA) exam in 2 years or sooner if medically necessary, to reassess this patient's status. Reported by: LAUREN on 10/15/2024 3:31:00 PM. Reviewed, dictated and finalized at location AShannon PÉREZ
--- OUTSIDE RECORDS SUMMARY | 2024-10-15 14:47 | XMS_ITS | Encounter Summary ---
Author Organization [facility] Address [address] [place] [address] Care Team Providers Care Pipeliner Name Role Phone Mauro Norwood MD Primary Care Provider [phone] Encounter Details Date Type Department Care Team (Late st Contact Info) Description 10/31/2007 Abstract [facility] Conversion Md, Generic Conversion, Social History [...] on filedocumented in this encounter Care Teams Pipeliner Relationship Specialty Start Date End Date Mauro Norwood MD PCP - General INTERNAL MEDICINE 06/30/17 documented as of this encounter
--- OUTSIDE RECORDS SUMMARY | 2024-10-15 14:47 | XMS_ITS | Clinical Summary ---
Author Organization [facility] Address [address] [place] [address] Care Team Providers Care Tank Farm Attendant Name Role Phone Mauro Norwood MD Primary Care Provider [phone] Allergies Active Allergy Reactions Criticality Noted Date [...] Comments Blood Pressure 132/72 06/30/2017 2:37 PM BEHAVIORAL SCIENTIST Pulse 84 06/30/2017 2:37 PM BEHAVIORAL SCIENTIST Temperature 36.7 C (98 F) 06/30/2017 2:37 PM BEHAVIORAL SCIENTIST Respiratory Rate 18 06/30/2017 2:37 PM BEHAVIORAL SCIENTIST Oxygen Saturation 98% 06/30/2017 2:37 PM BEHAVIORAL SCIENTIST Inhaled Oxygen Concentration - - Weight 61.2 kg (135 lb) 06/30/2017 2:37 PM BEHAVIORAL SCIENTIST Height 162.6 cm (5' 4 ) 06/30/2017 2:37 PM BEHAVIORAL SCIENTIST Body Mass Index 23.17 06/30/2017 2:37 PM BEHAVIORAL SCIENTIST Plan of Treatment Health Maintenance Due Date Last Done Comments Colorectal Cancer Screening Colonoscopy (10 Years) 1950 Hepatitis C 1968 DTaP, Tdap and Td Vaccines ( 1 - Tdap) 1969 Mammogram Screening 1990 Pneumococcal Vaccine: 50+ Ye ars (1 of 1 - PCV) 2000 Zoster Vaccines (1 of 2) 2000 Dexa Scan (General) 08/28/2015 COVID-19 Vaccine (1 - 2023-2 5 season) 2024 RSV Immunization or 60+ Years (1 [...] to complete this topic Insurance Care Teams Tank Farm Attendant Relationship Specialty Start Date End Date Mauro Norwood MD PCP - General INTERNAL MEDICINE 06/30/17
--- OUTSIDE RECORDS SUMMARY | 2024-10-15 14:47 | XMS_ITS | Clinical Summary ---
[facility] Address [address] [place] [address] Care Team Providers Care Cow Rider Name Role Phone Flower Blandon MD Primary Care Provider [phone] Allergies Active Allergy Reactions Criticality Noted Date [...] Encounters Date Type Department Care Team Description 08/28/2024 External Device Data STL ABSTRACTION Provider, Abstract 08/17/2024 External Device Data STL ABSTRACTION Provider, Abstract 08/16/2024 External Device Data STL ABSTRACTION Provider, Abstract 08/14/2024 External Device Data STL ABSTRACTION Provider, Abstract 07/30/2024 External Device Data STL ABSTRACTION Provider, Abstract [...] Care Team (Late st Contact Info) Description 12/10/2024 2:45 PM CDT Office Visit [facility] Oncology and Hematology - [place] [address] [facility] [address] [place] [address] Mauro Gama MD [address] [facility] [address] [place] [address] Health Maintenance Due Date Last Done Comments DTAP/TDAP/TD VACCINES (1 - Tdap) 1969 BREAST CANCER SCREENING 1990 COLORECTAL SCREENING 08/28/1995 Colorectal Cancer Screening 08/28/1995 FIT-DNA Q 3 years 08/28/1995 FIT/FOBT Q 1 year 08/28/1995 Flex Sig/CT Colonography Q 5 years 08/28/1995 PNEUMOCOCCAL VACCINE 50+ YEARS (1 of 1 - PCV) 08/28/19 01 ZOSTER VACCINE (1 of 2) 2000 OSTEOPOROSIS SCREENING 08/28/2015 INFLUENZA VACCINE (#1) 2024 RSV VACCINE (60+ or ) (1 - 1-dose 75+ series) 2025 Insurance [facility] [place] Address: [address] [address] Care Teams Cow Rider Relationship Specialty Start Date End Date Flower Blandon MD [address] [facility] [address] [place] [address] PCP - General Family Practice 09/05/23
== END 2024-10-15 14:42 | disposition home or self-care (01) ==
PROVIDERS: PCP Family Medicine; Visit Provider Family Medicine
DX: Z78.0 Asymptomatic menopausal state (principal); M85.88 Other specified disorders of bone density and structure, other site; M85.852 Other specified disorders of bone density and structure, left thigh; M85.851 Other specified disorders of bone density and structure, right thigh; M81.0 Age-related osteoporosis without current pathological fracture
CPT/HCPCS: 77080

== ENCOUNTER 2024-12-07 07:41 | Outpatient (CLI) | payer OTHER, SELFPAY ==
[2024-12-07 08:23] LABS: Basophils Percent Auto 0.8 % (0.2-1.2); Eosinophils Absolute Auto 0.1 K/mm3 (0-0.3); Eosinophils Percent Auto 2.8 % (0-4.4); Hematocrit 38.9 % (37.0-47.0); Hemoglobin 12.5 g/dL (12.0-15.0); Immature Granulocyte Absolute 0.01 K/mm3 (0.00-0.031); Immature Granulocyte Percent A 0.3 % (0-0.5); Lymphocytes Percent Auto 27.9 % (18.3-44.2); Mean Corpuscular HGB Conc 32.1 g/dl (32-36); Mean Corpuscular Hemoglobin 29.8 pg (26-34); Mean Corpuscular Volume 92.8 fl (80-100); Mean Platelet Volume 9.7 fl (7.4-10.4); Monocytes Absolute Auto 0.4 K/mm3 (0.1-0.6); Monocytes Percent Auto 9.9 % (2.6-8.5); Neutrophils Absolute Auto 2.3 K/mm3 (1.3-6.7); Neutrophils Percent Auto 58.3 % (45.5-73.1); Platelet Count Result 287 k/mm3 (150-375); Red Blood Count 4.19 M/mm3 (4.2-5.4); White Blood Count 3.9 K/mm3 (4.5-10.0)
[2024-12-07 08:33] LABS: Anion Gap 5 mmol/L (4-12); Blood Urea Nitrogen 11 mg/dL (7-17); Calcium 9.3 mg/dL (8.4-10.2); Carbon Dioxide 28 mmol/L (22-30); Chloride 105 mmol/L (98-107); Estimated Glomerular Filt Rate > 60; Glucose 92 mg/dL (65-110); Potassium 4.2 mmol/L (3.4-5.0); Sodium 138 mmol/L (137-145)
[2024-12-07 09:03] LABS: Iron 96 ug/dL (37-170)
[2024-12-07 09:13] LABS: Percent Iron Saturation 32 % (20-50)
[2024-12-07 09:38] LABS: Folic Acid 9.7 ng/mL (2.76->20)
== END 2024-12-07 07:42 | disposition home or self-care (01) ==
LOC: ANHLAB 07:43
PROVIDERS: PCP Family Medicine; Visit Provider Internal Medicine Hematology & Oncology
DX: D64.9 Anemia, unspecified (principal)
CPT/HCPCS: 36415; 80048; 82607; 82728; 82746; 83540; 83550; 85025

== ENCOUNTER 2025-01-20 14:24 | Outpatient (CLI) | payer OTHER, SELFPAY ==
--- OUTSIDE RECORDS SUMMARY | 2025-01-20 14:40 | XMS_ITS | Encounter Summary ---
Author Organization [facility] Address [address] [place] [address] Care Team Providers Care Cut Off Machine Helper Name Role Phone Mauro Norwood MD Primary Care Provider [phone] Encounter Details Date Type Department Care Team (Late st Contact Info) Description 10/31/2007 Abstract [facility] Conversion Md, Generic Conversion, Social [...] on filedocumented in this encounter Care Teams Cut Off Machine Helper Relationship Specialty Start Date End Date Mauro Norwood MD PCP - General INTERNAL MEDICINE 06/30/17 documented as of this encounter
--- OUTSIDE RECORDS SUMMARY | 2025-01-20 14:40 | XMS_ITS | Clinical Summary ---
Author Organization [facility] Address [address] [place] [address] Care Team Providers Care Sliver Handler Name Role Phone Mauro Norwood MD Primary Care Provider [phone] Allergies Active Allergy Reactions Criticality Noted Date [...] Comments Blood Pressure 132/72 06/30/2017 2:37 PM AUDITING CODER Pulse 84 06/30/2017 2:37 PM AUDITING CODER Temperature 36.7 C (98 F) 06/30/2017 2:37 PM AUDITING CODER Respiratory Rate 18 06/30/2017 2:37 PM AUDITING CODER Oxygen Saturation 98% 06/30/2017 2:37 PM AUDITING CODER Inhaled Oxygen Concentration - - Weight 61.2 kg (135 lb) 06/30/2017 2:37 PM AUDITING CODER Height 162.6 cm (5' 4) 06/30/2017 2:37 PM AUDITING CODER Body Mass Index 23.17 06/30/2017 2:37 PM AUDITING CODER Plan of Treatment Health Maintenance Due Date [...] to complete this topic Insurance Care Teams Sliver Handler Relationship Specialty Start Date End Date Mauro Norwood MD PCP - General INTERNAL MEDICINE 06/30/17
--- OUTSIDE RECORDS SUMMARY | 2025-01-20 14:40 | XMS_ITS | Clinical Summary ---
Author Organization [facility]uno [facility] Address [address] [facility] [place] [address] Care Team Providers Care Maintenance Planner Name Role Phone Cullen Colbert MD Primary Care Provider [phone] Allergies Active Allergy Reactions Criticality Noted Date [...] Encounters Date Type Department Care Team Description 12/25/2024 External Device Data STL ABSTRACTION Provider, Abstract 12/24/2024 External Device Data STL ABSTRACTION Provider, Abstract 12/11/2024 Orders Only [facility] Oncology and Hematology - [place] [address] [facility] [place] [address] Mauro Gama MD 12/10/2024 2:45 PM CDT Office Visit [facility] Oncology and Hematology - [place] [address] [place] [address] Mauro Gama MD Chronic anemia (Primary Dx) 12/03/2024 External Device Data STL ABSTRACTION Provider, Abstract 11/26/2024 External Device Data STL ABSTRACTION Provider, Abstract 11/05/2024 External Device Data STL ABSTRACTION Provider, Abstract 10/31/2024 External Device Data STL ABSTRACTION Provider, Abstract 10/30/2024 External Device Data STL ABSTRACTION Provider, Abstract 10/29/2024 External Device Data STL ABSTRACTION Provider, Abstract [...] Sign Reading Time Taken Comments Blood Pressure 130/81 12/10/2024 2:57 PM CDT Pulse 83 12/10/2024 2:56 PM CDT Temperature 37.1 C (98.7 F) 12/10/2024 2:56 PM CDT Respiratory Rate 15 12/10/2024 2:56 PM CDT Oxygen Saturation 93% 12/10/2024 2:56 PM CDT Inhaled Oxygen Concentration - - Weight 59.4 kg (131 lb) 12/10/2024 2:56 PM CDT Height 162.6 cm (5' 4) 09/05/2023 2:13 PM CDT Body Mass Index 22.49 09/05/2023 2:13 PM CDT Plan of Treatment Upcoming Encounters Date Type Department Care Team (Late st Contact Info) Description 12/10/2025 11:45 AM CDT Office Visit [facility] Oncology and Hematology - [place] [address] [place] [address] Mauro Gama MD [address] [facility] [address] [place] [address] Health Maintenance Due Date Last Done Comments DTAP/TDAP/TD VACCINES (1 - Tdap) 1969 BREAST CANCER SCREENING 1990 COLORECTAL SCREENING 08/28/1995 Colorectal Cancer Screening 08/28/1995 FIT-DNA Q 3 years 08/28/1995 FIT/FOBT Q 1 year 08/28/1995 Flex Sig/CT Colonography Q 5 years 08/28/1995 PNEUMOCOCCAL VACCINE 50+ YEARS (1 of 1 - PCV) 08/28/19 ZOSTER VACCINE (1 of 2) 2000 OSTEOPOROSIS SCREENING 08/28/2015 INFLUENZA VACCINE (#1) 2025 RSV VACCINE (60+ or ) (1 - 1-dose 75+ series) 2025 Procedures Procedure Name Priority Date/Time Associated Diagnosis Comments BASIC METABOLIC PANEL Routine 12/07/2024 7:33 AM CDT from Last 3 Months Results * BASIC METABOLIC PANEL (12/07/2024 7:33 AM CDT) Blood Mauro Gama MD CHEMISTRY ORDERABLES Final Resu lt from Last 3 Months Insurance [facility] [place] Address[place] [address] [id number] Care Teams Maintenance Planner Relationship Specialty Start Date End Date Cullen Colbert MD [address] [place] [address] PCP - General Family Practice 12/10/24
== END 2025-01-20 14:25 | disposition home or self-care (01) ==
LOC: ANHAUDIO 14:24
PROVIDERS: PCP Family Medicine; Visit Provider Physician Assistant Medical
DX: H90.3 Sensorineural hearing loss, bilateral (principal); H93.13 Tinnitus, bilateral; H61.23 Impacted cerumen, bilateral
CPT/HCPCS: 92557; 92567; 99199